=== PATIENT | female | born 1965 | race Two or more races ===

== ENCOUNTER 2022-07-31 11:22 | Outpatient (CLI) | payer OTHER | END 2022-07-31 11:23 | disposition home or self-care (01) | LOC: SONOGRAMA 11:22 | PROVIDERS: ATTEND Pathology Anatomic Pathology & Clinical Pathology | DX: D34 Benign neoplasm of thyroid gland (principal); E04.9 Nontoxic goiter, unspecified; E04.2 Nontoxic multinodular goiter ==

== ENCOUNTER 2023-06-25 11:14 | Outpatient (CLI) | payer OTHER | END 2023-06-25 11:16 | disposition home or self-care (01) | LOC: SONOGRAMA 11:14 | PROVIDERS: ATTEND Pathology Anatomic Pathology & Clinical Pathology | DX: D34 Benign neoplasm of thyroid gland (principal); E07.9 Disorder of thyroid, unspecified ==